=== PATIENT | male | born 1965 | race Caucasian/White ===

== ENCOUNTER → 2019-03-08 | Outpatient (CLI) | payer BC ==
[2019-03-08 14:29] LABS: HCT 37.3 % (39.0-53.0); HGB 11.8 gm/dL (13.0-17.5); Hypochromasia Marked; MCH 25.1 pg (25.0-35.0); MCHC 31.6 g/dL (31.0-37.0); MCV 79.3 fL (80.0-100.0); Mean Platelet Volume 6.1; Platelet Count 360 k/uL (150-450); RBC 4.71 m/uL (4.30-5.90); RDW 14.5 % (11.5-15.5); WBC 15.8 k/uL (3.8-10.6)
[2019-03-08 15:57] LABS: Erythrocyte Sedimentation Rate 24 mm/hr (0-15)
[2019-03-08 19:52] LABS: Albumin 4.9 g/dL (3.80-4.90); Albumin/Globulin Ratio 2.04 (1.60-3.17); Anion Gap 9.4 mmol/L (4.00-12.00); BUN/Creat Ratio 16.25 Ratio (12.00-20.00); C Reactive Protein 2.2 mg/dL (0.0-0.8); Calcium 9.7 mg/dL (8.7-10.3); Carbon Dioxide 28.6 mmol/L (21.6-31.8); Globulin 2.4 g/dL (1.6-3.3); Potassium 3.9 mmol/L (3.5-5.5); Total Bilirubin 0.7 mg/dL (0.3-1.2); Total Protein 7.3 g/dL (6.2-8.2)
== END | disposition home or self-care (01) ==
LOC: LABWHC1 13:58
PROVIDERS: ATTEND Internal Medicine
DX: K51.50 Left sided colitis without complications (principal)
CPT/HCPCS: 36415; 80053; 85027; 85652; 86140

== ENCOUNTER 2019-04-26 09:16 | Day surgery (SDC) | payer BC ==
[2019-04-21 14:47] VITALS: BMI 47.3
[~2019-04-26 09:16] MED LIST: LACTATED RINGERS 1,000 ML IV SCH; LIDOCAINE 1% 20 ML VIAL (10MG/ML) FOR IV START INTRADERMA PRN
[2019-04-26 09:54] VITALS: TEMP 98
[2019-04-26 10:10] LABS: Glucose,Whole Blood 115 mg/dL (75-99)
[2019-04-26] MEDS ORDERED: PROPOFOL 10 MG/ML 20 ML VIAL IV ONE (10:27)
--- NOTE | 2019-04-26 11:27 | P.PCN ---
Date of Procedure: 04/26/19 Description of Procedure: BRIEF HISTORY: Patient is a 54-year-old male with left-sided ulcerative colitis with mild inflammation seen in the sigmoid colon a diagnosis in 2018 initially maintained on 5ASA agents. He has had flares of his disease with the patient reporting blood per rectum and mucus discharge with frequency of bowel movements requiring 2 courses of steroid therapy. PROCEDURE PERFORMED: Colonoscopy with biopsy. PREOPERATIVE DIAGNOSIS: Colitis, left-sided ulcerative colitis. ESTIMATED BLOOD LOSS: Minimal. IV sedation per Anesthesia. PROCEDURE: After informed consent was obtained, the patient, was brought into the endoscopy unit. IV sedation was administered by Anesthesia under continuous monitoring. Digital rectal examination was normal. Initially the Olympus CF-190 flexible video colonoscope was then inserted in the rectum, gradually advanced into the cecum without any difficulty. Careful examination was performed as the scope was gradually being withdrawn. Ileocecal valve and the appendiceal orifice were visualized and appeared normal. Prep was fair. Mucosa of the cecum, ascending colon, transverse colon appeared grossly normal. The descending colon, sigmoid colon, and rectum were significant for findings of erythema, and some friability in the distal descending, sigmoid and proximal rectum consistent with moderate ulcerative colitis. A few pseudopolyps were seen. Random biopsies were taken of the cecum, ascending colon, transverse colon, descending colon, sigmoid colon and rectum. Retroflexion was performed in the rectum and no lesions were seen. The patient tolerated the procedure well. IMPRESSION: Moderate left colonic colitis. Random biopsies taken of the whole colon. RECOMMENDATIONS: Findings of this examination were discussed with the patient and his . Okay to resume diet. Okay to resume medications. Await pathology from biopsies. Patient is scheduled to follow up in gastroenterology clinic with plan for escalation of medical therapy. Repeat colonoscopy in 2 years or sooner based on symptoms.
[2019-04-26 11:40] VITALS: BP 135/83; PULSE 70; RESP 16
== END 2019-04-26 12:07 | disposition home or self-care (01) ==
LOC: ORWHC2ENDO 09:16
PROVIDERS: ATTEND Internal Medicine
DX: K51.50 Left sided colitis without complications (principal); K63.89 Other specified diseases of intestine; I10 Essential (primary) hypertension; E66.01 Morbid (severe) obesity due to excess calories; E78.5 Hyperlipidemia, unspecified; F41.9 Anxiety disorder, unspecified; M81.0 Age-related osteoporosis without current pathological fracture; Z79.82 Long term (current) use of aspirin; Z87.891 Personal history of nicotine dependence; Z79.01 Long term (current) use of anticoagulants; Z79.899 Other long term (current) drug therapy; Z98.890 Other specified postprocedural states; Z68.42 Body mass index [BMI] 45.0-49.9, adult; Z86.718 Personal history of other venous thrombosis and embolism; Z79.83 Long term (current) use of bisphosphonates
CPT/HCPCS: 88305; 45380; J2704

== ENCOUNTER → 2019-05-06 | Outpatient (CLI) | payer BC ==
[2019-05-06 20:27] LABS: Hepatitis B Core IgM Non-Reactive (Non-Reactive); Hepatitis B Surface AB- Quant 24.3 mIU/mL; Hepatitis B Surface Antibody Reactive (Non-Reactive); Hepatitis B Surface Antigen Non-Reactive (Non-Reactive)
[2019-05-09 14:16] LABS: Hepatitis B Virus DNA Not detected (Not detected); Hepatitis B Virus DNA, Quant <10 IU/mL (<10); Log HBV IU/mL <1.00 (<1.00)
== END | disposition home or self-care (01) ==
LOC: LABWHC1 12:22
PROVIDERS: ATTEND Internal Medicine
DX: R76.8 Other specified abnormal immunological findings in serum (principal)
CPT/HCPCS: 36415; 86705; 86706; 86707; 87340; 87350; 87517

== ENCOUNTER 2019-10-30 12:13 | Emergency (ER) | payer BC ==
[2019-10-30 12:21] VITALS: BP 140/75; PULSE 80; RESP 18; TEMP 98.3
[2019-10-30] MEDS ORDERED: MORPHINE SULFATE 4 MG/ML SYRINGE IM STA (13:05)
--- NOTE | 2019-10-30 13:47 | XR ---
EXAMINATION TYPE: XR shoulder complete RT DATE OF EXAM: 10/30/2019 COMPARISON: NONE HISTORY: Pain TECHNIQUE: Three views are submitted. FINDINGS: There is arthropathy of the glenohumeral joint and AC joint. No acute fracture. No dislocation. IMPRESSION: 1. Severe arthropathy with no definite acute fracture.
--- NOTE | 2019-10-30 14:02 | ED ---
General Adult HPI - General Chief complaint: Extremity Injury, Upper Stated complaint: Shoulder Injury Time Seen by Provider: 10/30/19 12:54 Source: patient, RN notes reviewed Mode of arrival: ambulatory Limitations: no limitations - History of Present Illness Initial comments: 54-year-old male with a past medical history of hyperlipidemia, hypertension, ulcerative colitis presents to the emergency department for a chief complaint of right shoulder pain. Patient states he tripped and fell 2 days ago. Denies having any lightheadedness chest pain or shortness of breath preceding this fall. Patient was seen in [facility] and had a negative shoulder x-ray. He was given a sling and Derby. He was told to follow-up with orthopedics for an MRI. Patient states he is still having pain and her to have an MRI done at our facility. Patient states he could not sleep well. Patient denies hitting his head. Patient denies any other injuries. Patient has no other complaints at this time including shortness of breath, chest pain, abdominal pain, nausea or vomiting, headache, or visual changes. - Related Data Home Medications Medication Instructions Recorded Confirmed Alendronate Sodium 70 mg PO GAMEZ 04/21/19 04/21/19 Balsalazide Disodium 2,250 mg PO TID 04/21/19 04/21/19 Carvedilol 12.5 mg PO BID 04/21/19 04/21/19 Dicyclomine HCl 20 mg PO TID 04/21/19 04/21/19 Ezetimibe [Zetia] 10 mg PO DAILY 04/21/19 04/21/19 Glucosamine 750 mg PO TID 04/21/19 04/26/19 Hydrochlorothiazide 25 mg PO DAILY 04/21/19 04/21/19 Multivitamins, Thera [Multivitamin 1 tab PO DAILY 04/21/19 04/21/19 (formulary)] Pravastatin Sodium [Pravachol] 40 mg PO DAILY 04/21/19 04/21/19 Riboflavin 500 mg PO TID 04/21/19 04/26/19 Rivaroxaban [Xarelto] 20 mg PO DAILY 04/21/19 04/21/19 Saw [place] 900 mg PO BID 04/21/19 04/26/19 Suppository 1 supp RECTAL DAILY 04/21/19 04/26/19 Terazosin HCl 5 mg PO HS 04/21/19 04/21/19 amLODIPine BESYLATE/BENAZEPRIL 1 cap PO QAM 04/21/19 04/21/19 [Lotrel 10-40 MG] busPIRone HCL 5 mg PO TID 04/21/19 04/21/19 predniSONE 10 mg PO TID 04/21/19 04/21/19 Allergies Allergy/AdvReac Type Severity Reaction Status Date / Time No Known Allergies Allergy Verified 10/30/19 12:21 Review of Systems ROS Statement: Those systems with pertinent positive or pertinent negative responses have been documented in the HPI. ROS Other: All systems not noted in ROS Statement are negative. Past Medical History Past Medical History: Deep Vein Thrombosis (DVT), Hyperlipidemia, Hypertension Additional Past Medical History / Comment(s): ulcerative colitis, osteoporosis, DVT behind left knee History of Any Multi-Drug Resistant Organisms: None Reported Past Surgical History: Ear Surgery, Joint Replacement, Orthopedic Surgery Additional Past Surgical History / Comment(s): radha knee replacement, left knee cartilage repair, radha ear sx Past Anesthesia/Blood Transfusion Reactions: No Reported Reaction Past Psychological History: Anxiety Smoking Status: Former smoker Past Alcohol Use History: Occasional Past Drug Use History: None Reported - Past Family History Mother Family Medical History: Cancer Additional Family Medical History / Comment(s): skin General Exam Limitations: no limitations General appearance: alert, in no apparent distress Head exam: Present: atraumatic, normocephalic, normal inspection Eye exam: Present: normal appearance, PERRL, EOMI. Absent: scleral icterus, conjunctival injection, periorbital swelling ENT exam: Present: normal exam, mucous membranes moist Neck exam: Present: normal inspection, full ROM. Absent: tenderness, meningismus, lymphadenopathy Respiratory exam: Present: normal lung sounds bilaterally. Absent: respiratory distress, wheezes, rales, rhonchi, stridor Cardiovascular Exam: Present: regular rate, normal rhythm, normal heart sounds. Absent: systolic murmur, diastolic murmur, rubs, gallop, clicks GI/Abdominal exam: Present: soft, normal bowel sounds. Absent: distended, tenderness, guarding, rebound, rigid Extremities exam: Present: tenderness (Patient has tenderness over the right shoulder however no tenderness in the distal humerus. No clavicular tenderness. No chest tenderness.), normal capillary refill (Capillary refill less than 2 seconds, radial pulse 2+ in the right upper extremity), other (Sensation intact right upper extremity. Barrel Scraper strength 5 out of 5. Full range of motion of the digits of the right hand.). Absent: full ROM (Vision is significant pain with movement of the right shoulder and right), pedal edema, joint swelling, calf tenderness Course Vital Signs 10/30/19 12:18 Temperature 98.3 F Pulse Rate 80 Respiratory 18 Rate Blood Pressure 140/75 O2 Sat by Pulse 98 Oximetry Medical Decision Making - Medical Decision Making X-ray of the right shoulder shows severe arthropathy without definite acute fracture. Patient was given morphine here in the emergency department. Patient was prescribed 24 Derby already and will not be given any other pain medications for home. However I did discuss if the pain is severe he can take 2 at a time but not to take Tylenol if he does this as he could overdose on Tylenol. I did discuss following up with orthopedics tomorrow for an appointment. He was already given referral by Radha but I will give him our on-call orthopedic doctor as well. He will return here for any worsening symptoms. Disposition Clinical Impression: Shoulder pain Disposition: HOME SELF-CARE Condition: Good Instructions (If sedation given, give patient instructions): Shoulder Pain (ED) Additional Instructions: Please continue to take Derby for pain. Please follow-up with orthopedics by calling for an appointment on Thursday. If you have any worsening symptoms return here to the emergency room. Is patient prescribed a controlled substance at d/c from ED?: No Referrals: Kylie Da Silva MD [Primary Care Provider] - 1-2 days Saul Sandoval MD [Medical Doctor] - 1-2 days Time of Disposition: 14:00
== END 2019-10-30 14:25 | disposition home or self-care (01) ==
LOC: EC 12:13
DX: M19.011 Primary osteoarthritis, right shoulder (principal); E78.5 Hyperlipidemia, unspecified; I10 Essential (primary) hypertension; M81.0 Age-related osteoporosis without current pathological fracture; F41.9 Anxiety disorder, unspecified; Z79.899 Other long term (current) drug therapy; Z79.52 Long term (current) use of systemic steroids; Z79.01 Long term (current) use of anticoagulants; Z87.891 Personal history of nicotine dependence; Z86.718 Personal history of other venous thrombosis and embolism; Z96.653 Presence of artificial knee joint, bilateral; W01.0XXA Fall on same level from slipping, tripping and stumbling without subsequent striking against object, initial encounter; Y92.009 Unspecified place in unspecified non-institutional (private) residence as the place of occurrence of the external cause
CPT/HCPCS: 73030; 99283; 96372; J2270

== ENCOUNTER 2020-05-26 09:29 | Emergency (ER) | payer BC ==
[2020-05-26 09:34] VITALS: TEMP 98.6
--- NOTE | 2020-05-26 10:32 | XR ---
Left ankle and left foot HISTORY: Trauma and pain 3 views of the left ankle and 3 views the left foot There is soft tissue swelling present. Small ossific densities are present at the level the medial ma lleolus which is thought likely to be well-corticated. There is no dislocation. There is a plantar ca lcaneal spur. Spurring is present at the tibiotalar joint, intertarsal joints. Degenerative change pr esent at the first metatarsophalangeal joint. There is some irregularity the distal metaphyseal left tibia seen on the lateral exam, oblique exam shows a lucency also seen on the frontal exam. There are atherosclerotic vascular calcifications present. Enthesophyte present at the insertion of the Achill es tendon. IMPRESSION: No acute dislocation. Osteoarthritic changes and evidence of remote trauma, difficult to exclude avulsion injury or chip fracture. Correlate for remote history of trauma to the distal tibia, questionable acuity of irregularity at the distal tibia.
--- NOTE | 2020-05-26 10:45 | ED ---
Lower Extremity Injury HPI - General Chief Complaint: Extremity Injury, Lower Stated Complaint: Fall/left foot injury Time Seen by Provider: 05/26/20 09:38 Source: patient Mode of arrival: wheelchair Limitations: no limitations - History of Present Illness Initial Comments: Patient is a 55-year-old male presenting to the emergency Department with compla ints of left ankle and left foot pain since last night. Patient states yesterday evening he thought he was on the bottom step however he was not and went to step down and twisted his left ankle and his left foot. Patient states he was not able to angulate much last night. He states when he got up this morning he felt like his ankle and foot or more swollen, he was able to ambulate thumb using his cane. Patient denies any previous surgeries or injuries to his left foot or ankle. He denies any other injuries from this fall. He did not hit his head. He has no further complaints at this time. - Related Data Home Medications Medication Instructions Recorded Confirmed Alendronate Sodium 70 mg PO GAMEZ 04/21/19 04/21/19 Balsalazide Disodium 2,250 mg PO TID 04/21/19 04/21/19 Dicyclomine HCl 20 mg PO TID 04/21/19 04/21/19 Ezetimibe [Zetia] 10 mg PO DAILY 04/21/19 04/21/19 Glucosamine 750 mg PO TID 04/21/19 04/26/19 Multivitamins, Thera [Multivitamin 1 tab PO DAILY 04/21/19 04/21/19 (formulary)] Pravastatin Sodium [Pravachol] 40 mg PO DAILY 04/21/19 04/21/19 Riboflavin 500 mg PO TID 04/21/19 04/26/19 Rivaroxaban [Xarelto] 20 mg PO DAILY 04/21/19 04/21/19 Saw [place] 900 mg PO BID 04/21/19 04/26/19 Suppository 1 supp RECTAL DAILY 04/21/19 04/26/19 Terazosin HCl 5 mg PO HS 04/21/19 04/21/19 amLODIPine BESYLATE/BENAZEPRIL 1 cap PO QAM 04/21/19 04/21/19 [Lotrel 10-40 MG] busPIRone HCL 5 mg PO TID 04/21/19 04/21/19 carvediloL [Carvedilol] 12.5 mg PO BID 04/21/19 04/21/19 hydroCHLOROthiazide 25 mg PO DAILY 04/21/19 04/21/19 predniSONE 10 mg PO TID 04/21/19 04/21/19 Allergies Allergy/AdvReac Type Severity Reaction Status Date / Time No Known Allergies Allergy Verified 05/26/20 09:35 Review of Systems ROS Statement: Those systems with pertinent positive or pertinent negative responses have been documented in the HPI. ROS Other: All systems not noted in ROS Statement are negative. Past Medical History Past Medical History: Deep Vein Thrombosis (DVT), Hyperlipidemia, Hypertension Additional Past Medical History / Comment(s): ulcerative colitis, osteoporosis, DVT behind left knee History of Any Multi-Drug Resistant Organisms: None Reported Past Surgical History: Ear Surgery, Joint Replacement, Orthopedic Surgery Additional Past Surgical History / Comment(s): radha knee replacement, left knee cartilage repair, radha ear sx Past Anesthesia/Blood Transfusion Reactions: No Reported Reaction Past Psychological History: Anxiety Smoking Status: Never smoker Past Alcohol Use History: Occasional Past Drug Use History: None Reported - Past Family History Mother Family Medical History: Cancer Additional Family Medical History / Comment(s): skin General Exam - General Exam Comments Initial Comments: GENERAL: Patient is well-developed and well-nourished. Patient is nontoxic and in no acute distress. HEAD: Atraumatic, normocephalic. EYES: Pupils equal round and reactive to light, extraocular movements intact, sclera anicteric, conjunctiva are normal. Eyelids were unremarkable. ENT: TMs normal, nares patent, oropharynx clear without exudates. Moist mucous membranes. NECK: Normal range of motion, supple without lymphadenopathy or JVD. LUNGS: Unlabored respirations. Breath sounds clear to auscultation bilaterally and equal. No wheezes rales or rhonchi. HEART: Regular rate and rhythm without murmurs, rubs or gallops. ABDOMEN: Soft, nontender, normoactive bowel sounds. No guarding, no rebound. No masses appreciated. : Deferred MUSCULOSKELETAL: Patient has pain with palpation of the left lateral malleolus, as well as over the first MTP joint. He has some mild swelling and bruising to the toe. He is neurovascular intact. He does have full ankle range of motion. No clubbing or cyanosis. NEUROLOGICAL: Patient is alert and oriented x 3. Motor and sensory are also intact. . PSYCH: Normal mood, normal affect. SKIN: Warm, Dry, normal turgor, no rashes or lesions noted. Limitations: no limitations Course Vital Signs 05/26/20 09:32 Temperature 98.6 F Pulse Rate 73 Respiratory 16 Rate Blood Pressure 133/76 O2 Sat by Pulse 98 Oximetry Procedures - Orthopedic Splinting/Casting Injury #1 Side: left Lower Extremity Injury Location: short leg, ankle Lower Extremity Immobilizer: stirrup splint, Yang wrap, synthetic pre-padded splint Medical Decision Making - Medical Decision Making Patient is a 55-year-old male here for left foot and left toe pain after he fell missing the bottom step last night. Denied hitting his head, no other injuries from this fall. X-rays of the left ankle and left foot reveal no acute dislocation, there is some irregularity of the distal metaphyseal left tibia on the lateral exam, so difficult to exclude an avulsion injury. No other abnormalities seen the left foot. Discussed these findings with the patient. Patient will be placed in a splint and will follow up with orthopedics. He is in agreement with this plan of care. He can continue with Tylenol as needed for any discomfort as well as ice and elevation. Case discussed with dr. Faustin. Disposition Clinical Impression: Left ankle pain, Sprain of left great toe Disposition: HOME SELF-CARE Condition: Stable Instructions (If sedation given, give patient instructions): Swollen Joint (ED) Additional Instructions: Please return to the Emergency Department if symptoms worsen or any other concerns. Please leave splint in place until follow-up with orthopedics. May take Tylenol for discomfort, use ice to the area elevation. Is patient prescribed a controlled substance at d/c from ED?: No Referrals: Kylie Da Silva MD [Primary Care Provider] - 1-2 days Augustin Field MD [STAFF PHYSICIAN] - 1-2 days
[2020-05-26] MEDS ORDERED: traMADol 50 MG STARTER PACK 3 TAB BTL PO STA (11:00)
[2020-05-26 11:31] VITALS: BP 119/78; PULSE 63; RESP 17
== END 2020-05-26 11:40 | disposition home or self-care (01) ==
LOC: EC 09:29
DX: S93.502A Unspecified sprain of left great toe, initial encounter (principal); I10 Essential (primary) hypertension; M81.0 Age-related osteoporosis without current pathological fracture; E78.5 Hyperlipidemia, unspecified; F41.9 Anxiety disorder, unspecified; Z79.52 Long term (current) use of systemic steroids; Z79.83 Long term (current) use of bisphosphonates; Z79.899 Other long term (current) drug therapy; Z79.01 Long term (current) use of anticoagulants; Z86.718 Personal history of other venous thrombosis and embolism; Z96.653 Presence of artificial knee joint, bilateral; W10.9XXA Fall (on) (from) unspecified stairs and steps, initial encounter; Y92.009 Unspecified place in unspecified non-institutional (private) residence as the place of occurrence of the external cause
CPT/HCPCS: 29515; 99283

== ENCOUNTER → 2020-06-04 | Outpatient (CLI) | payer BC ==
--- NOTE | 2020-06-04 12:30 | US ---
EXAMINATION TYPE: US venous doppler duplex LE LT DATE OF EXAM: 06/04/2020 12:13 PM COMPARISON: NONE CLINICAL HISTORY: 55-year-old male LLE I80.9 Phlebitis and thrombophlebitis. SIDE PERFORMED: Left TECHNIQUE: The lower extremity deep venous system is examined utilizing real time linear array sonog dea with graded compression, doppler sonography and color-flow sonography. FINDINGS: VESSELS IMAGED: Common Femoral Vein Deep Femoral Vein Greater Saphenous Vein * Femoral Vein Popliteal Vein Small Saphenous Vein * Proximal Calf Veins - not well seen due to body habitus Posterior tibial veins (* superficial vessels) Left Leg: Negative for DVT *Posterior calf veins and GSV also scanned per order. Preliminary results given to Kajal at . IMPRESSION: No evidence for DVT within the left lower extremity.
== END | disposition home or self-care (01) ==
LOC: RADUSWWP 11:42
PROVIDERS: ATTEND Orthopaedic Surgery
DX: I80.9 Phlebitis and thrombophlebitis of unspecified site (principal)

== ENCOUNTER 2020-08-01 08:52 | Emergency (ER) | payer BC ==
--- NOTE | 2020-08-01 09:43 | ED ---
General Adult HPI - General Chief complaint: Shortness of Breath Stated complaint: body aches/fever Time Seen by Provider: 08/01/20 09:12 Source: patient, RN notes reviewed Mode of arrival: ambulatory Limitations: no limitations - History of Present Illness Initial comments: 55-year-old male with a past medical history of post op DVT, hyperlipidemia, hy pertension, ulcerative colitis presents to the emergency room for Covid test. Patient states that his tested positive yesterday and had an antibody infusion which he thinks he could benefit from given his obesity. Patient reports that he has had symptoms for 6 days now. States he has had body aches and sweats as well as cough and congestion. He has not had any chest pain or shortness of breath.Patient has no other complaints at this time including shortness of breath, chest pain, abdominal pain, nausea or vomiting, headache, or visual changes. - Related Data Home Medications Medication Instructions Recorded Confirmed Balsalazide Disodium 2,250 mg PO TID 04/21/19 05/26/20 Dicyclomine HCl 20 mg PO TID 04/21/19 05/26/20 Ezetimibe [Zetia] 10 mg PO HS 04/21/19 05/26/20 Multivitamins, Thera [Multivitamin 1 tab PO DAILY 04/21/19 05/26/20 (formulary)] Pravastatin Sodium [Pravachol] 40 mg PO DAILY 04/21/19 05/26/20 Saw [place] 900 mg PO BID 04/21/19 05/26/20 Terazosin HCl 5 mg PO HS 04/21/19 05/26/20 amLODIPine BESYLATE/BENAZEPRIL 1 cap PO QAM 04/21/19 05/26/20 [Lotrel 10-40 MG] busPIRone HCL 5 mg PO TID 04/21/19 05/26/20 carvediloL [Carvedilol] 12.5 mg PO BID 04/21/19 05/26/20 hydroCHLOROthiazide 25 mg PO DAILY 04/21/19 05/26/20 Aspirin EC [Ecotrin Low Dose] 81 mg PO DAILY 05/26/20 05/26/20 Ferrous Sulfate [Feosol] 325 mg PO Q48H 05/26/20 05/26/20 Glucos Sul 2Kcl/MSM/Chond/C/Mn 1 cap PO TID 05/26/20 05/26/20 [Glucosamine Chondroitin Cap] Lipo-Flavonoid 500mg 1,000 mg PO BID 05/26/20 05/26/20 Allergies Allergy/AdvReac Type Severity Reaction Status Date / Time No Known Allergies Allergy Verified 08/01/20 09:07 Review of Systems ROS Statement: Those systems with pertinent positive or pertinent negative responses have been documented in the HPI. ROS Other: All systems not noted in ROS Statement are negative. Past Medical History Past Medical History: Deep Vein Thrombosis (DVT), Hyperlipidemia, Hypertension Additional Past Medical History / Comment(s): ulcerative colitis, osteoporosis, DVT behind left knee History of Any Multi-Drug Resistant Organisms: None Reported Past Surgical History: Ear Surgery, Joint Replacement, Orthopedic Surgery Additional Past Surgical History / Comment(s): radha knee replacement, left knee cartilage repair, radha ear sx Past Anesthesia/Blood Transfusion Reactions: No Reported Reaction Past Psychological History: Anxiety Smoking Status: Never smoker Past Alcohol Use History: Occasional Past Drug Use History: None Reported - Past Family History Mother Family Medical History: Cancer Additional Family Medical History / Comment(s): skin General Exam Limitations: no limitations General appearance: alert, in no apparent distress Head exam: Present: atraumatic, normocephalic, normal inspection Eye exam: Present: normal appearance, PERRL, EOMI. Absent: scleral icterus, conjunctival injection, periorbital swelling ENT exam: Present: normal exam, mucous membranes moist Neck exam: Present: normal inspection, full ROM. Absent: tenderness, meningismus, lymphadenopathy Respiratory exam: Present: normal lung sounds bilaterally. Absent: respiratory distress, wheezes Cardiovascular Exam: Present: regular rate, normal rhythm, normal heart sounds. Absent: systolic murmur, diastolic murmur, rubs, gallop, clicks GI/Abdominal exam: Present: soft, normal bowel sounds. Absent: distended, tenderness Neurological exam: Present: alert Course Vital Signs 08/01/20 09:02 Temperature 98.4 F Pulse Rate 70 Respiratory 18 Rate Blood Pressure 142/85 O2 Sat by Pulse 96 Oximetry Medical Decision Making - Medical Decision Making Vitals are stable. Patient is well-appearing. No worse or distress. Patient did test positive for covid. Chest x-ray does show patchy perihilar and basilar infiltrates that are compatible with pneumonia. Patient does qualify for BAM. Patient will be discharged home in stable condition to follow up with primary care. Will return here for any worsening symptoms. - Lab Data Lab Results 08/01/20 Range/Units 09:06 Coronavirus (PCR) Detected A (Not Detectd) Disposition Clinical Impression: COVID-19 Disposition: HOME SELF-CARE Condition: Good Instructions (If sedation given, give patient instructions): Coronavirus Disease 2019 (COVID-19) Additional Instructions: Please follow up with primary care in 1-2 days. Return to the emergency room for any worsening symptoms. Is patient prescribed a controlled substance at d/c from ED?: No Referrals: Kylie Da Silva MD [Primary Care Provider] - 1-2 days Time of Disposition: 10:11
--- NOTE | 2020-08-01 10:00 | XR ---
EXAMINATION TYPE: XR chest 1V portable DATE OF EXAM: 08/01/2020 HISTORY: Shortness of breath. COMPARISON: None. TECHNIQUE: Single view of the chest is submitted. FINDINGS: Demonstrated are scattered senescent parenchymal change. Patchy perihilar and basilar infiltrates are compatible with pneumonia. The heart is stable. Hilar and mediastinal structures are within normal limits. Degenerative changes are seen of the dorsal spine. IMPRESSION: 1. Patchy perihilar and basilar infiltrates are compatible with pneumonia.
[2020-08-01] MEDS ORDERED: BAMLANIVIMAB (EUA) 700 MG, ETESEVIMAB (EUA) 1,400 MG in SODIUM CHLORIDE 0.9% 50 ML IVPB ONE (11:00)
[2020-08-01 12:55] VITALS: BP 116/74; PULSE 65; RESP 16; TEMP 98.6
== END 2020-08-01 12:35 | disposition home or self-care (01) ==
LOC: EC 08:52
DX: U07.1 COVID-19 (principal); E78.5 Hyperlipidemia, unspecified; I10 Essential (primary) hypertension; M81.0 Age-related osteoporosis without current pathological fracture; F41.9 Anxiety disorder, unspecified; E66.9 Obesity, unspecified; Z86.718 Personal history of other venous thrombosis and embolism; Z79.82 Long term (current) use of aspirin; Z68.42 Body mass index [BMI] 45.0-49.9, adult
CPT/HCPCS: 71045; 87635; 99285

== ENCOUNTER 2020-08-19 10:15 | Emergency (ER) | payer BC ==
[2020-08-19 10:20] VITALS: BP 156/93; PULSE 72; RESP 16; TEMP 97.4
--- NOTE | 2020-08-19 10:53 | ED ---
Lower Extremity Injury HPI - General Chief Complaint: Extremity Injury, Lower Stated Complaint: FOOT PAIN Time Seen by Provider: 08/19/20 10:21 Source: patient Mode of arrival: wheelchair Limitations: no limitations - History of Present Illness Initial Comments: 55-year-old male presents to emergency department with a chief complaint of right foot pain and swelling that has been ongoing for the past 2 days. Patient reports this started Thursday without any injuries with gradual increase in the swelling. Patient reports the pain is exacerbated with weightbearing and is mostly located in the mid foot and near the ankle. Pain is also worse with dorsiflexion. He denies any ecchymosis or erythematous changes. Denies any temperature changes to the foot. Denies any paresthesias. Denies any calf pain, chest pain or shortness of breath. - Related Data Home Medications Medication Instructions Recorded Confirmed Balsalazide Disodium 2,250 mg PO TID 04/21/19 08/19/20 Dicyclomine HCl 20 mg PO TID 04/21/19 08/19/20 Ezetimibe [Zetia] 10 mg PO HS 04/21/19 08/19/20 Multivitamins, Thera [Multivitamin 1 tab PO DAILY 04/21/19 08/19/20 (formulary)] Pravastatin Sodium [Pravachol] 40 mg PO HS 04/21/19 08/19/20 Saw [place] 900 mg PO BID 04/21/19 08/19/20 Terazosin HCl 5 mg PO HS 04/21/19 08/19/20 amLODIPine BESYLATE/BENAZEPRIL 1 cap PO DAILY 04/21/19 08/19/20 [Lotrel 10-40 MG] busPIRone HCL 5 mg PO TID 04/21/19 08/19/20 carvediloL [Carvedilol] 25 mg PO BID 04/21/19 08/19/20 hydroCHLOROthiazide 25 mg PO DAILY 04/21/19 08/19/20 Aspirin EC [Ecotrin Low Dose] 81 mg PO DAILY 05/26/20 08/19/20 Ferrous Sulfate [Feosol] 325 mg PO MOWEFR 05/26/20 08/19/20 Glucos Sul 2Kcl/MSM/Chond/C/Mn 1 cap PO TID 05/26/20 08/19/20 [Glucosamine Chondroitin Cap] Lipo-Flavonoid 500mg 1,000 mg PO TID 05/26/20 08/19/20 Stelara Unknown Dose 1 injection IM Q56D 08/19/20 08/19/20 Allergies Allergy/AdvReac Type Severity Reaction Status Date / Time No Known Allergies Allergy Verified 08/19/20 11:25 Review of Systems ROS Statement: Those systems with pertinent positive or pertinent negative responses have been documented in the HPI. ROS Other: All systems not noted in ROS Statement are negative. Past Medical History Past Medical History: Deep Vein Thrombosis (DVT), Hyperlipidemia, Hypertension Additional Past Medical History / Comment(s): ulcerative colitis, osteoporosis, DVT behind left knee History of Any Multi-Drug Resistant Organisms: None Reported Past Surgical History: Ear Surgery, Joint Replacement, Orthopedic Surgery Additional Past Surgical History / Comment(s): radha knee replacement, left knee cartilage repair, radha ear sx Past Anesthesia/Blood Transfusion Reactions: No Reported Reaction Past Psychological History: Anxiety Smoking Status: Never smoker Past Alcohol Use History: Occasional Past Drug Use History: None Reported - Past Family History Mother Family Medical History: Cancer Additional Family Medical History / Comment(s): skin General Exam Limitations: no limitations General appearance: alert, in no apparent distress, obese Head exam: Present: atraumatic, normocephalic, normal inspection Eye exam: Present: normal appearance, PERRL, EOMI Pupils: Present: normal accommodation ENT exam: Present: normal exam, normal oropharynx, mucous membranes moist, TM's normal bilaterally, normal external ear exam Neck exam: Present: normal inspection, full ROM. Absent: tenderness Respiratory exam: Present: normal lung sounds bilaterally. Absent: respiratory distress, wheezes, rales Cardiovascular Exam: Present: regular rate, normal rhythm, normal heart sounds. Absent: systolic murmur Extremities exam: Present: tenderness (Mild midfoot tenderness. No malleoli tenderness.), normal capillary refill, other (Palpable DP and PT bilaterally. Sensation intact in bilateral lower shot is. No signs of ischemic changes to the foot. No signs of overlying cellulitic skin changes.). Absent: normal inspection (Mild swelling noted in the right foot. No erythematous or ecchymotic changes.), full ROM (Limited active range of motion with dorsiflexion and plantar flexion due to pain), pedal edema, joint swelling, calf tenderness (Tenderness bilaterally) Back exam: Present: normal inspection, full ROM. Absent: tenderness, CVA tenderness (R), CVA tenderness (L) Neurological exam: Present: alert, oriented X3 Psychiatric exam: Present: normal affect, normal mood Skin exam: Present: warm, dry, intact, normal color Course Vital Signs 08/19/20 10:17 Temperature 97.4 F L Pulse Rate 72 Respiratory 16 Rate Blood Pressure 156/93 O2 Sat by Pulse 93 L Oximetry Medical Decision Making - Medical Decision Making 55-year-old male presents to the emergency department with a chief complaint of foot pain and swelling. On physical examination, he is neurovascularly intact. No signs of infection at this time. Most of the pain is localized in the mid foot with diffuse swelling. He does not have any calf tenderness, chest pain or shortness of breath. X-ray reveals osteoarthritic changes with some soft tissue swelling. No other acute findings. Patient will be given a postop shoe and follow-up with automation specialist. Return parameters were discussed with patient was understanding and agreeable. Case discussed with Dr. Brooks. Disposition Clinical Impression: Right foot pain, Swelling of right foot Disposition: HOME SELF-CARE Condition: Stable Instructions (If sedation given, give patient instructions): Osteoarthritis (DC), Arthralgia (ED) Additional Instructions: Follow-up with an automation specialist. Return to emergency department if symptoms worsen. Keep the foot elevated. Is patient prescribed a controlled substance at d/c from ED?: No Referrals: Kylie Da Silva MD [Primary Care Provider] - 1-2 days Time of Disposition: 11:46
--- NOTE | 2020-08-19 11:08 | XR ---
Right foot HISTORY: Swelling 3 views of the right foot There is osteophytic change at the first metatarsophalangeal joint. No fracture or dislocation. Bone mineralization, joint spaces and alignment are maintained. Small ossific density adjacent to the medi al malleolus is well-corticated and not felt likely to be acute. There is spurring at the tibiotalar joint. There is a plantar calcaneal spur. Enthesophyte present at the insertion of the Achilles tendo n. Degenerative changes are present at the intertarsal joints. There is soft tissue swelling. IMPRESSION: Osteoarthritis. Soft tissue swelling.
== END 2020-08-19 12:04 | disposition home or self-care (01) ==
LOC: EC 10:15
DX: M79.671 Pain in right foot (principal); M79.89 Other specified soft tissue disorders; F41.9 Anxiety disorder, unspecified; E78.5 Hyperlipidemia, unspecified; I10 Essential (primary) hypertension; Z79.82 Long term (current) use of aspirin; Z86.718 Personal history of other venous thrombosis and embolism
CPT/HCPCS: 99283

== ENCOUNTER → 2021-06-19 | Outpatient (CLI) | payer BC ==
[2021-06-19 14:34] LABS: African American GFR (CKD) 111.8 (60.0-200.0); Albumin 4.7 g/dL (3.8-4.9); Albumin/Globulin Ratio 1.81 (1.60-3.17); BUN/Creat Ratio 15.67 Ratio (12.00-20.00); Blood Urea Nitrogen 14.1 mg/dL (9.0-27.0); Calcium 9.9 mg/dL (8.7-10.3); Globulin 2.6 g/dL (1.6-3.3); Non-African American GFR(CKD) 96.5 (60.0-200.0); Potassium 3.8 mmol/L (3.5-5.5); Total Bilirubin 0.7 mg/dL (0.30-1.20); Total Protein 7.3 g/dL (6.2-8.2)
[2021-06-19 15:02] LABS: Basophils # (A) 0.05 X 10*3/uL (0.00-0.10); Basophils % (A) 0.4 %; Eosinophils # (A) 0.29 X 10*3/uL (0.04-0.35); Eosinophils % (A) 2.1 %; HGB 14.8 g/dL (13.0-17.0); Immature Grans, Automated 0.5 %; Lymphocytes % (A) 19.9 %; MCHC 31.5 g/dL (32.0-37.0); MCV 85.8 fL (80.0-97.0); Mean Platelet Volume 10.8 fL (9.5-12.2); Monocytes # (A) 0.74 X 10*3/uL (0.20-1.00); Monocytes % (A) 5.3 %; NRBC Per 100 WBC 0 /100 WBCS (0.0-0.0); Neutrophils # (A) 10.14 X 10*3/uL (1.80-7.70); Neutrophils % (A) 71.8 %; Platelet Count 253 X 10*3/uL (140-440); RBC 5.48 X 10*6/uL (4.40-5.60); WBC 14.09 X 10*3/uL (4.50-10.00)
== END | disposition home or self-care (01) ==
LOC: LABWHC1 07:59
PROVIDERS: ATTEND Internal Medicine Gastroenterology
DX: K51.50 Left sided colitis without complications (principal)
CPT/HCPCS: 36415; 80053; 85025

== ENCOUNTER → 2021-10-24 | Outpatient (CLI) | payer BC ==
[2021-10-24 15:20] LABS: Basophils # (A) 0.04 X 10*3/uL (0.00-0.10); Basophils % (A) 0.3 %; Eosinophils # (A) 0.19 X 10*3/uL (0.04-0.35); Eosinophils % (A) 1.5 %; HCT 44.4 % (39.6-50.0); HGB 13.9 g/dL (13.0-17.0); Immature Grans, Automated 0.3 %; Lymphocytes # (A) 3.24 X 10*3/uL (0.90-5.00); Lymphocytes % (A) 25.1 %; MCH 27.1 pg (27.0-32.0); MCHC 31.3 g/dL (32.0-37.0); MCV 86.5 fL (80.0-97.0); Mean Platelet Volume 11.5 fL (9.5-12.2); Monocytes # (A) 0.75 X 10*3/uL (0.20-1.00); Monocytes % (A) 5.8 %; NRBC Per 100 WBC 0 /100 WBCS (0.0-0.0); Neutrophils # (A) 8.63 X 10*3/uL (1.80-7.70); Platelet Count 229 X 10*3/uL (140-440); RBC 5.13 X 10*6/uL (4.40-5.60); RDW 13.8 % (11.5-14.5); WBC 12.89 X 10*3/uL (4.50-10.00)
[2021-10-24 16:20] LABS: African American GFR (CKD) 98.5 (60.0-200.0); Albumin 4.7 g/dL (3.8-4.9); Albumin/Globulin Ratio 1.81 (1.60-3.17); Anion Gap 9.9 mmol/L (10.00-18.00); BUN/Creat Ratio 14.4 Ratio (12.00-20.00); Blood Urea Nitrogen 14.4 mg/dL (9.0-27.0); Calcium 9.7 mg/dL (8.7-10.3); Carbon Dioxide 29.1 mmol/L (20.0-27.5); Globulin 2.6 g/dL (1.6-3.3); Non-African American GFR(CKD) 84.9 (60.0-200.0); Potassium 4.6 mmol/L (3.5-5.5); Total Bilirubin 0.7 mg/dL (0.30-1.20); Total Protein 7.3 g/dL (6.2-8.2)
== END | disposition home or self-care (01) ==
LOC: LABWHC1 08:54
PROVIDERS: ATTEND Internal Medicine Gastroenterology
DX: K51.50 Left sided colitis without complications (principal)
CPT/HCPCS: 36415; 80053; 85025

== ENCOUNTER → 2022-03-11 | Outpatient (CLI) | payer BC ==
--- NOTE | 2022-03-11 15:59 | P.SLEEP ---
History of Present Illness H&P Date: 03/11/22 Chief Complaint: Obstructive sleep apnea This is a very pleasant 57-year-old male patient was originally diagnosed having obstructive sleep apnea 2 years ago through the sleep center at [facility]. At that time the patient was told that he has severe HOWARD and he was g iven a BiPAP machine and the pressure was subsequently adjusted to a pressure of 14/7 cm of water. The patient is coming in to establish himself in our sleep Center. He is still symptomatic. He is still feeling tired and fatigued despite being on BiPAP therapy and despite being compliant to the treatment. He denies having any significant weight gain since his titration. He has occasional snoring while on treatment. He has been also is told to stop breathing while on BiPAP treatment and for that reason, he came in to us for further advice. Currently sleeping on his back. He has chronic shoulder pain and he prefers to sleep on his back. I checked his machine and the patient has a ResMed VPAP auto and the patient is using the S mode at pressures of 14/7 cm of water with the humidity level of 5 and a temperature of 68F. The patient's compliance over the past 30 days indicates that the patient has used the machine 27/30 and the patient has been averaging around 8.2 hours of BiPAP use per night with a leak of 30 L/m, tidal volume of 6 20 mL, respiration of 17/m and a minute ventilation of 10.9 L/m. His AHI is still elevated while on treatment and is as high as 28 despite being on treatment. He is using a Vitera large size full facemask. He is going to bed at around 8:30, waking up at 4 AM and on weekends he wakes up 7 AM in the morning. He has an Dubach score of 9. Review of Systems Constitutional: Reports daytime sleepiness, Reports fatigue Eyes: denies as per HPI, denies blurred vision, denies bulging eye, denies decreased vision, denies diplopia, denies discharge, denies dry eye, denies irritation, denies itching, denies pain, denies photophobia, denies loss of peripheral vision, denies loss of vision, denies tunnel vision/blind spots Ears: deny: decreased hearing, ear discharge, earache, tinnitus Ears, nose, mouth and throat: Reports as per HPI Breasts: absent: as per HPI, gynecomastia Cardiovascular: Reports as per HPI Respiratory: Reports sleep apnea, Reports snoring Gastrointestinal: Reports as per HPI Genitourinary: Reports as per HPI Musculoskeletal: Reports as per HPI Musculoskeletal: absent: ankle pain, ankle stiffness, ankle swelling Integumentary: Reports as per HPI Neurological: Reports as per HPI Psychiatric: Reports as per HPI Endocrine: Reports as per HPI Hematologic/Lymphatic: Reports as per HPI Allergic/Immunologic: Reports as per HPI Past Medical History Past Medical History: Deep Vein Thrombosis (DVT), Hyperlipidemia, Hypertension Additional Past Medical History / Comment(s): ulcerative colitis, osteoporosis, DVT behind left knee, obstructive sleep apnea, BPH, osteoarthritis, hypertension, hyperlipidemia, chronic anxiety, hearing impairment History of Any Multi-Drug Resistant Organisms: None Reported Past Surgical History: Ear Surgery, Joint Replacement, Orthopedic Surgery Additional Past Surgical History / Comment(s): radha knee replacement, left knee cartilage repair, radha ear sx Past Anesthesia/Blood Transfusion Reactions: No Reported Reaction Past Psychological History: Anxiety Smoking Status: Never smoker Past Alcohol Use History: Occasional Past Drug Use History: None Reported - Past Family History Mother Family Medical History: Cancer Additional Family Medical History / Comment(s): skin Medications and Allergies Home Medications Medication Instructions Recorded Confirmed Type Balsalazide Disodium 2,250 mg PO TID 04/21/19 08/19/20 History Dicyclomine HCl 20 mg PO TID 04/21/19 08/19/20 History Ezetimibe [Zetia] 10 mg PO HS 04/21/19 08/19/20 History Multivitamins, Thera [Multivitamin 1 tab PO DAILY 04/21/19 08/19/20 History (formulary)] Pravastatin Sodium [Pravachol] 40 mg PO HS 04/21/19 08/19/20 History Saw [place] 900 mg PO BID 04/21/19 08/19/20 History Terazosin HCl 5 mg PO HS 04/21/19 08/19/20 History amLODIPine BESYLATE/BENAZEPRIL 1 cap PO DAILY 04/21/19 08/19/20 History [Lotrel 10-40 MG] busPIRone HCL 5 mg PO TID 04/21/19 08/19/20 History carvediloL 25 mg PO BID 04/21/19 08/19/20 History hydroCHLOROthiazide 25 mg PO DAILY 04/21/19 08/19/20 History Aspirin EC [Ecotrin Low Dose] 81 mg PO DAILY 05/26/20 08/19/20 History Ferrous Sulfate [Feosol] 325 mg PO MOWEFR 05/26/20 08/19/20 History Glucos Sul 2Kcl/MSM/Chond/C/Mn 1 cap PO TID 05/26/20 08/19/20 History [Glucosamine Chondroitin Cap] Lipo-Flavonoid 500mg 1,000 mg PO TID 05/26/20 08/19/20 History Stelara Unknown Dose 1 injection IM Q56D 08/19/20 08/19/20 History Allergies Allergy/AdvReac Type Severity Reaction Status Date / Time No Known Allergies Allergy Verified 08/19/20 11:25 Physical Exam BP is 153/88, pulse is 66, respirations 16, temperature is 96.4F and his body weight is 311 pounds and the body mass index is 46.5. The patient has an Dubach score of 9 Gen. appearance the patient is obese, comfortable not in acute distress. The patient appeared well nourished and normally developed. Vital signs as documented. Head exam is unremarkable. No scleral icterus or corneal arcus noted. Neck is without jugular venous distension, thyromegaly, or carotid bruits. Carotid upstrokes are brisk bilaterally. The patient has a Mallampati class IV with significant crowding of the posterior pharynx. Lungs are clear to auscultation and percussion. Cardiac exam reveals the PMI to be normally sized and situated. Rhythm is regular. First and second heart sounds normal. No murmurs, rubs or gallops. Abdominal exam reveals normal bowel sounds, no masses, no organomegaly and no aortic enlargement. Extremities are nonedematous and both femoral and pedal pulses are normal.Examination of the skin revealed no evidence of significant rashes, suspicious appearing nevi or other concerning lesions.Neurologically, the patient is awake and alert and the patient does not have any focal neurological deficit. Cranial nerves are essentially intact. Assessment and Plan Plan: Obstructive sleep apnea, severity is not known although suspect that the patient has severe HOWARD. The patient is currently on BiPAP at a pressure of 14/7 cm of water. Treatment has been suboptimal and the patient continues to have a high number of obstructive respiratory events with an AHI of 28 while on treatment with BiPAP. Hypersomnia due to suboptimal treatment of HOWARD. The patient is compliant. However, the treatment is still nonsuccessful and this may be related to the pressure setting that needs to be adjusted. Obesity with a BMI of 46.5, current body weight is 311 BPH Osteoarthritis Hyperlipidemia Hypertension Ulcerative colitis Chronic anxiety Hearing impairment Remote history of DVT Plan Encourage weight loss Maintain aggressive schedule Optimizing sleep hygiene measures Based on the failed treatment on the current BiPAP setting, the patient will need another titration. I'm going to do a BiPAP titration on this patient. Is currently using a fullface mask and will try the various fullface mask is available including the air fit F 20 and the simplus fullface mask as an alternative mass to his current mask that he has. Will adjust the pressure setting and will follow this patient to make sure that his apnea hypoxemia index is dropped down on the 5. Patient was agreeable to the titration. The patient understands the importance of doing an in lab titration. He is committed to the treatment. His current machine is functional. We'll continue to follow. Sleep Note - Sleep Note Sleep Note: Temperature: Pulse Rate: Respiratory Rate: Blood Pressure: SpO2: Height: Weight: BMI: Neck Circumference:
== END ==
LOC: SLEEP 13:16
PROVIDERS: ATTEND Internal Medicine Critical Care Medicine
DX: G47.33 Obstructive sleep apnea (adult) (pediatric) (principal); Z99.89 Dependence on other enabling machines and devices; Z87.891 Personal history of nicotine dependence
CPT/HCPCS: 99211

== ENCOUNTER → 2022-05-19 | Outpatient (CLI) | payer BC ==
[2022-05-19 14:34] LABS: Basophils # (A) 0.05 X 10*3/uL (0.00-0.10); Basophils % (A) 0.4 %; Eosinophils # (A) 0.32 X 10*3/uL (0.04-0.35); Eosinophils % (A) 2.7 %; HCT 41.3 % (39.6-50.0); HGB 13.4 g/dL (13.0-17.0); Immature Grans, Automated 0.4 %; Lymphocytes # (A) 2.58 X 10*3/uL (0.90-5.00); Lymphocytes % (A) 21.6 %; MCHC 32.4 g/dL (32.0-37.0); MCV 86.4 fL (80.0-97.0); Mean Platelet Volume 10.9 fL (9.5-12.2); Monocytes # (A) 0.85 X 10*3/uL (0.20-1.00); Monocytes % (A) 7.1 %; NRBC Per 100 WBC 0 /100 WBCS (0.0-0.0); Neutrophils # (A) 8.11 X 10*3/uL (1.80-7.70); Neutrophils % (A) 67.8 %; Platelet Count 230 X 10*3/uL (140-440); RBC 4.78 X 10*6/uL (4.40-5.60); RDW 13.4 % (11.5-14.5); WBC 11.96 X 10*3/uL (4.50-10.00)
[2022-05-19 15:15] LABS: African American GFR (CKD) 116.6 (60.0-200.0); Albumin 4.4 g/dL (3.8-4.9); Albumin/Globulin Ratio 1.52 (1.60-3.17); Anion Gap 9.5 mmol/L (10.00-18.00); BUN/Creat Ratio 15.13 Ratio (12.00-20.00); Blood Urea Nitrogen 12.1 mg/dL (9.0-27.0); Calcium 9.5 mg/dL (8.7-10.3); Carbon Dioxide 26.5 mmol/L (20.0-27.5); Globulin 2.9 g/dL (1.6-3.3); Non-African American GFR(CKD) 100.6 (60.0-200.0); Potassium 3.9 mmol/L (3.5-5.5); Total Bilirubin 0.4 mg/dL (0.30-1.20); Total Protein 7.3 g/dL (6.2-8.2)
== END | disposition home or self-care (01) ==
LOC: LABWHC1 08:18
PROVIDERS: ATTEND Internal Medicine Gastroenterology
DX: K51.50 Left sided colitis without complications (principal)
CPT/HCPCS: 36415; 80053; 85025

== ENCOUNTER → 2022-08-04 | Outpatient (CLI) | payer BC ==
--- NOTE | 2022-08-04 14:46 | XR ---
EXAMINATION TYPE: XR cervical spine comp DATE OF EXAM: 08/04/2022 CLINICAL HISTORY: pain COMPARISON: NONE TECHNIQUE: Frontal, lateral, oblique, swimmers, and open mouth view of the cervical spine are obtaine d. FINDINGS: The cervical spine is visualized in its entirety from C1 thru the top of T1 level. It is s atisfactory in alignment without evidence of acute fracture or dislocation. The pre-vertebral soft t issue appears within normal limits. Moderate narrowing C5-6 and C6-7 with ventral and dorsal spondylo sis. Mild neural foraminal encroachment at each level. The C1-C2 articulation is unremarkable on the open mouth view. IMPRESSION: No acute fracture or dislocation is seen in the cervical spine.ICD 10 NO FRACTURE, INITI AL EVALUATION
== END | disposition home or self-care (01) ==
LOC: RADXRMAIN 14:07
PROVIDERS: ATTEND Nurse Practitioner Family
DX: M54.2 Cervicalgia (principal); M54.12 Radiculopathy, cervical region
CPT/HCPCS: 72050

== ENCOUNTER → 2022-09-09 | Outpatient (CLI) | payer BC ==
--- NOTE | 2022-09-09 15:15 | P.PN ---
Progress Note - Text Progress Note Date: 09/09/22 On 2022, I'm seeing this patient in follow-up at the sleep Center regarding his obstructive sleep apnea. The patient is known to have obstructive sleep apnea and the patient was treated with BiPAP at a pressures of 12/7 cm of water. It was noted that the patient was having some residual obstructive respiratory events and his treatment was suboptimal. Based on that, the patient was given a BiPAP titration that was done around 04/22/2022. My recommendations were to start the patient on a VPAP auto at a EPAP minimum pressure of 10 and a maximum pressure of 24 and a pressure support of 4. The patient was also asked to continue the Airfit F20 fullface mask. The setting adjustments was supposed to be done by his DME him a medical. [facility]. He was noted as well as new setting, the patient started having a large number of central events and his central apnea index was up to 50. Based on that, the patient made this appointment. On today's evaluation, I looked at the patient's machine and I noted that the patient is on a S mode at pressures of 24/10 cm of water and is same time, the patient is utilizing the machine every night on average of 8 hours per night and the generator tidal volume is 920 with a respiratory rate of 12 and an apnea index of 53, majority being centrals. His leak was in the order of 20 L/m. The patient was feeling unrested. BP is 142/86 with a pulse of 60 and a respiration of 18 and a temperature of 96.1. Body mass index is 46.7 and weight is 314 Gen. appearance, comfortable, morbidly obese The patient appeared well nourished and normally developed. Vital signs as documented. Head exam is unremarkable. No scleral icterus or corneal arcus noted. Neck is without jugular venous distension, thyromegaly, or carotid bruits. Carotid upstrokes are brisk bilaterally. Lungs are clear to auscultation and percussion. Cardiac exam reveals the PMI to be normally sized and situated. Rhythm is regular. First and second heart sounds normal. No murmurs, rubs or gallops. Abdominal exam reveals normal bowel sounds, no masses, no organomegaly and no aortic enlargement. Extremities are nonedematous and both femoral and pedal pulses are normal.Examination of the skin revealed no evidence of significant rashes, suspicious appearing nevi or other concerning lesions.Neurologically, the patient is awake and alert and the patient does not have any focal neurological deficit. Cranial nerves are essentially intact. Assessment Obstructive sleep apnea, treated in the past with a BiPAP pressure of 12/7 with suboptimal response as the patient was having residual obstructive respiratory events. The patient underwent a BiPAP titration and it was noted that on the current setting the patient was having excessive number of central events. Obviously, the mode of the machine is set wrong. The patient was being overstretched and the patient was being excessively ventilator resulting into emergence of central events. Note that his minute ventilation is quite high during sleep on the current setting. Morbid obesity BPH Hypertension Hyperlipidemia Chronic anxiety Remote history of DVT Osteoarthritis Plan Switch this patient is a VPAP auto and I set him to a EPAP minimum of 7 and a maximum of 24 with a pressure support of 4. We'll keep the same mask interface. The patient will see him back in 2 months on the follow-up to reevaluate his condition and make further adjustments if needed. I suspect a central events and ultimately disappeare with the current adjusted settings. We'll continue to follow.
== END ==
LOC: 3 N SLEEP 14:22
PROVIDERS: ATTEND Internal Medicine Critical Care Medicine
DX: G47.33 Obstructive sleep apnea (adult) (pediatric) (principal); Z99.89 Dependence on other enabling machines and devices; E66.01 Morbid (severe) obesity due to excess calories; N40.0 Benign prostatic hyperplasia without lower urinary tract symptoms; I10 Essential (primary) hypertension; E78.5 Hyperlipidemia, unspecified; F41.9 Anxiety disorder, unspecified; Z86.718 Personal history of other venous thrombosis and embolism; M19.90 Unspecified osteoarthritis, unspecified site; Z87.891 Personal history of nicotine dependence
CPT/HCPCS: 99212

== ENCOUNTER → 2023-02-18 | Outpatient (CLI) | payer BC ==
[2023-02-18 08:39] LABS: Basophils % (A) 0 %; Eosinophils # (A) 0.2 k/uL (0-0.7); Eosinophils % (A) 2 %; HGB 13.9 gm/dL (13.0-17.5); Lymphocytes # (A) 2.6 k/uL (1.0-4.8); Lymphocytes % (A) 22 %; MCH 28.9 pg (25.0-35.0); MCHC 33.2 g/dL (31.0-37.0); Monocytes # (A) 0.5 k/uL (0-1.0); Monocytes % (A) 5 %; Neutrophils # (A) 8.6 k/uL (1.3-7.7); Neutrophils % (A) 71 %; Platelet Count 179 k/uL (150-450); RBC 4.83 m/uL (4.30-5.90); RDW 13.7 % (11.5-15.5); WBC 12.1 k/uL (3.8-10.6)
[2023-02-18 11:12] LABS: ALT 33 U/L (10-49); AST 20 U/L (14-35); Albumin 4.7 d/dL (3.8-4.9); Albumin/Globulin Ratio 1.88 Ratio (1.60-3.17); Alkaline Phosphatase 47 U/L (41-126); BUN/Creat Ratio 14.88 Ratio (12.00-20.00); Blood Urea Nitrogen 11.9 mg/dL (9.0-27.0); Calcium 9.4 mg/dL (8.7-10.3); Chloride 105 mmol/L (96-109); Chol/HDL Ratio 2.78 Ratio; Globulin 2.5 d/dL (1.6-3.3); Glucose 112 mg/dL (70-110); LDL Cholesterol,Calculated 58.2 mg/dL (0.0-131.0); Potassium 4.4 mmol/L (3.5-5.5); Prostate Specific Antigen 1.08 ng/mL (0.000-3.500); Sodium 144 mmol/L (135-145); T4, Free (Free Thyroxine) 1.15 ng/dL (0.80-1.80); Total Bilirubin 0.6 mg/dL (0.3-1.2); Total Protein 7.2 d/dL (6.2-8.2); VLDL Calculation 12.82 mg/dL (5.00-40.00)
[2023-02-18 14:48] LABS: RBC Morphology Normal
== END | disposition home or self-care (01) ==
LOC: LABWHC1 08:15
PROVIDERS: ATTEND Family Medicine
DX: Z00.00 Encounter for general adult medical examination without abnormal findings (principal); I10 Essential (primary) hypertension; N40.1 Benign prostatic hyperplasia with lower urinary tract symptoms; D72.829 Elevated white blood cell count, unspecified
CPT/HCPCS: 36415; 80053; 80061; 84153; 84439; 84443; 84481; 85025

== ENCOUNTER → 2023-05-23 | Outpatient (CLI) | payer BC ==
[2023-05-23 22:53] LABS: Basophils # (A) 0.04 X 10*3/uL (0.00-0.10); Basophils % (A) 0.3 %; Eosinophils # (A) 0.16 X 10*3/uL (0.04-0.35); Eosinophils % (A) 1.4 %; HCT 41.6 % (39.6-50.0); HGB 13.8 g/dL (13.0-17.0); Lymphocytes % (A) 27.4 %; MCH 28.2 pg (27.0-32.0); MCHC 33.2 g/dL (32.0-37.0); MCV 84.9 FL (80.0-97.0); Mean Platelet Volume 10.7 FL (9.5-12.2); Monocytes # (A) 0.69 X 10*3/uL (0.20-1.00); Monocytes % (A) 5.9 %; NRBC Per 100 WBC 0 X 10*3/uL (0.00-0.01); Neutrophils # (A) 7.54 X 10*3/uL (1.80-7.70); Neutrophils % (A) 64.7 %; Platelet Count 296 X 10*3/uL (140-440); WBC 11.67 X 10*3/uL (4.50-10.00)
[2023-05-23 23:03] LABS: ALT 35 U/L (10-49); AST 26 U/L (14-35); Albumin 4.8 g/dL (3.8-4.9); Albumin/Globulin Ratio 1.66 Ratio (1.60-3.17); Alkaline Phosphatase 57 U/L (41-126); BUN/Creat Ratio 20.89 Ratio (12.00-20.00); Blood Urea Nitrogen 18.8 mg/dL (9.0-27.0); Carbon Dioxide 25.9 mmol/L (21.6-31.8); Chloride 103 mmol/L (96-109); Globulin 2.9 g/dL (1.6-3.3); Glucose 87 mg/dL (70-110); Potassium 3.8 mmol/L (3.5-5.5); Sodium 142 mmol/L (135-145); Total Protein 7.7 g/dL (6.2-8.2)
== END | disposition home or self-care (01) ==
LOC: LABWHC1 11:20
PROVIDERS: ATTEND Internal Medicine Gastroenterology
DX: K51.50 Left sided colitis without complications (principal)
CPT/HCPCS: 36415; 80053; 85025

== ENCOUNTER → 2023-11-03 | Outpatient (CLI) | payer BC ==
[2023-11-03 17:36] LABS: BUN/Creat Ratio 16.88 Ratio (12.00-20.00); Blood Urea Nitrogen 13.5 mg/dL (9.0-27.0); Carbon Dioxide 25.7 mmol/L (21.6-31.8); Chloride 102 mmol/L (96-109); Glucose 102 mg/dL (70-110); Potassium 3.6 mmol/L (3.5-5.5); Sodium 140 mmol/L (135-145)
[2023-11-03 17:37] LABS: ALT 32 U/L (10-49); AST 24 U/L (14-35); Albumin 4.6 g/dL (3.8-4.9); Albumin/Globulin Ratio 1.92 Ratio (1.60-3.17); Alkaline Phosphatase 47 U/L (41-126); Calcium 9.2 mg/dL (8.7-10.3); Globulin 2.4 g/dL (1.6-3.3)
[2023-11-03 17:49] LABS: Basophils # (A) 0.03 X 10*3/uL (0.00-0.10); Basophils % (A) 0.3 %; Eosinophils # (A) 0.17 X 10*3/uL (0.04-0.35); Eosinophils % (A) 1.6 %; HCT 40.9 % (39.6-50.0); HGB 13.4 g/dL (13.0-17.0); Lymphocytes # (A) 2.82 X 10*3/uL (0.90-5.00); Lymphocytes % (A) 25.9 %; MCH 28.2 pg (27.0-32.0); MCHC 32.8 g/dL (32.0-37.0); MCV 86.1 FL (80.0-97.0); Mean Platelet Volume 11.6 FL (9.5-12.2); Monocytes # (A) 0.66 X 10*3/uL (0.20-1.00); Monocytes % (A) 6.1 %; NRBC Per 100 WBC 0 X 10*3/uL (0.00-0.01); Neutrophils # (A) 7.15 X 10*3/uL (1.80-7.70); Neutrophils % (A) 65.6 %; Platelet Count 216 X 10*3/uL (140-440); RBC 4.75 X 10*6/uL (4.40-5.60); RDW 13.5 % (11.5-14.5); WBC 10.88 X 10*3/uL (4.50-10.00)
== END | disposition home or self-care (01) ==
LOC: LABWHC1 09:48
PROVIDERS: ATTEND Internal Medicine Gastroenterology
DX: K51.50 Left sided colitis without complications (principal)
CPT/HCPCS: 36415; 80053; 85025

== ENCOUNTER → 2024-04-14 | Outpatient (CLI) | payer BC ==
[2024-04-14 14:59] LABS: Basophils # (A) 0.04 X 10*3/uL (0.00-0.10); Basophils % (A) 0.4 %; Eosinophils # (A) 0.16 X 10*3/uL (0.04-0.35); Eosinophils % (A) 1.5 %; HCT 44.5 % (39.6-50.0); HGB 14.2 g/dL (13.0-17.0); Lymphocytes # (A) 2.96 X 10*3/uL (0.90-5.00); Lymphocytes % (A) 27.6 %; MCH 27.8 pg (27.0-32.0); MCHC 31.9 g/dL (32.0-37.0); MCV 87.3 FL (80.0-97.0); Mean Platelet Volume 11.1 FL (9.5-12.2); Monocytes # (A) 0.69 X 10*3/uL (0.20-1.00); Monocytes % (A) 6.4 %; NRBC Per 100 WBC 0 X 10*3/uL (0.00-0.01); Neutrophils % (A) 63.5 %; Platelet Count 213 X 10*3/uL (140-440); RDW 13.1 % (11.5-14.5); WBC 10.71 X 10*3/uL (4.50-10.00)
[2024-04-14 15:14] LABS: ALT 40 U/L (10-49); AST 28 U/L (14-35); Albumin 4.7 g/dL (3.8-4.9); Albumin/Globulin Ratio 1.74 Ratio (1.60-3.17); Alkaline Phosphatase 45 U/L (41-126); Blood Urea Nitrogen 13.2 mg/dL (9.0-27.0); Calcium 9.6 mg/dL (8.7-10.3); Carbon Dioxide 24.9 mmol/L (21.6-31.8); Chloride 103 mmol/L (96-109); Chol/HDL Ratio 2.56 Ratio; Globulin 2.7 g/dL (1.6-3.3); Glucose 107 mg/dL (70-110); LDL Cholesterol,Calculated 63.5 mg/dL (0.0-131.0); Potassium 3.9 mmol/L (3.5-5.5); Sodium 140 mmol/L (135-145); Total Bilirubin 0.9 mg/dL (0.3-1.2); Total Protein 7.4 g/dL (6.2-8.2)
== END ==
LOC: LABWHC1 09:13
PROVIDERS: ATTEND Internal Medicine Gastroenterology
DX: Z00.00 Encounter for general adult medical examination without abnormal findings (principal); E11.9 Type 2 diabetes mellitus without complications; Z12.5 Encounter for screening for malignant neoplasm of prostate
CPT/HCPCS: 36415; 80053; 80061; 83036; 84153; 85025

== ENCOUNTER → 2024-10-15 | Outpatient (CLI) | payer BC ==
[2024-10-16 01:21] LABS: ALT 34 U/L (10-49); AST 26 U/L (14-35); Albumin 4.2 g/dL (3.8-4.9); Albumin/Globulin Ratio 1.62 Ratio (1.60-3.17); Alkaline Phosphatase 43 U/L (41-126); BUN/Creat Ratio 14.89 Ratio (12.00-20.00); Blood Urea Nitrogen 13.4 mg/dL (9.0-27.0); Calcium 9.2 mg/dL (8.7-10.3); Carbon Dioxide 26.1 mmol/L (21.6-31.8); Chloride 108 mmol/L (96-109); Globulin 2.6 g/dL (1.6-3.3); Glucose 109 mg/dL (70-110); Potassium 3.8 mmol/L (3.5-5.5); Sodium 147 mmol/L (135-145); Total Protein 6.8 g/dL (6.2-8.2)
[2024-10-16 06:03] LABS: Basophils # (A) 0.03 X 10*3/uL (0.00-0.10); Basophils % (A) 0.3 %; Eosinophils # (A) 0.16 X 10*3/uL (0.04-0.35); Eosinophils % (A) 1.6 %; HCT 39.9 % (39.6-50.0); HGB 12.8 g/dL (13.0-17.0); Lymphocytes # (A) 2.46 X 10*3/uL (0.90-5.00); Lymphocytes % (A) 24.8 %; MCH 28.1 pg (27.0-32.0); MCHC 32.1 g/dL (32.0-37.0); MCV 87.5 FL (80.0-97.0); Mean Platelet Volume 11.2 FL (9.5-12.2); Monocytes % (A) 7.1 %; NRBC Per 100 WBC 0 X 10*3/uL (0.00-0.01); Neutrophils % (A) 65.7 %; Platelet Count 206 X 10*3/uL (140-440); RBC 4.56 X 10*6/uL (4.40-5.60); RDW 13.3 % (11.5-14.5)
== END | disposition home or self-care (01) ==
LOC: LABWHC1 10:02
PROVIDERS: ATTEND Internal Medicine Gastroenterology
DX: K51.50 Left sided colitis without complications (principal)
CPT/HCPCS: 36415; 80053; 85025